=== PATIENT | female | born 1980 | race Caucasian/White ===

== ENCOUNTER 2018-05-21 15:57 | Emergency (ER) | payer MEDICAID, SELFPAY ==
[2018-05-21 16:08] VITALS: BP 137/86; PULSE 108; RESP 16; TEMP 37.2; O2SAT 99
--- NOTE | 2018-05-21 16:10 | DI.RAD_ITS ---
SYMPTOM/DIAGNOSIS: 1 WK PAIN AFTER TRAUMA OVER LATERAL FOOT AND 2/3 TOE RIGHT FOOT: No fracture, dislocation is seen. There is a bone island in the calcaneus as well as a small healed spur. IMPRESSION: No acute abnormality.
--- NOTE | 2018-05-21 16:24 | W.ED.GENAD ---
Discharge Plan Disposition Patient Disposition: HOME Condition: Good Discharge Details Chief Complaint: Orthopedic Clinical Impression: Acute foot pain Reason For Visit: right foot pain Primary Care Provider: Pipo Alarcon ED Provider: Sampson Norris Home Meds and New Rx's Prescriptions: No Action amoxicillin 500 MG capsule 500 mg PO BID Qty: 14 RF: 0 fexofenadine 60 MG tablet 60 mg PO Q12H PRN PRNQty: 14 RF: 0 fluticasone [Flonase Allergy Relief] 9.9 ML spray,suspension 9.9 ml NS DAILY Qty: 1 RF: 0 Discharge Instructions Instructions: Foot Sprain (ED) Additional Instructions: Please continue to take Tylenol and Motrin. Please use ice as often as possible. Please use the walking boot as directed. If you notice any worsening of your symptoms, or any new symptoms such as vomiting, diarrhea, fever, chills, shortness of breath, chest pain, numbness, weakness, or fainting , please return immediately to the emergency department for reevaluation. Please follow up with your primary care provider as soon as possible for reassessment and reevaluation. As always, it was a pleasure participating in your medical care today. Referrals: Pipo Alarcon [Primary Care Provider] - Medical Decision Making This is a 38-year-old female who presents for pain in her right foot. It occurred 1 week ago after stepping on it funny but it was slightly numb and tingly after sitting for quite some time. She has since had pain in the midfoot region, her second and third toe, the lateral aspect of her foot. No significant deformity or abnormalities noted on exam. Minimal swelling. We will get an x-ray to rule out any acute fracture. 5:20 PM The x-ray has returned negative for any acute fracture process. No evidence of a Lisfranc fracture. Patient will be given a walking boot, and discharged home with close follow-up with her PCP. We discussed the importance of orthopedic follow-up if her symptoms do not improve. Recommend continued ice, Tylenol, and Motrin. I have extensively reviewed the treatment plan and discharge instructions with the patient and their family. I have addressed all patient concerns at this time. The patient and family was made aware of what symptoms to monitor for that would warrant a return to the emergency department. Discussed the plan with the patient and family, they demonstrate verbal understanding and agreement with our assessment and plan at this time. COMPARISON: No relevant prior studies available. FINDINGS: The bony structures are in anatomic alignment. No fracture is present. No radiopaque foreign body is identified. The joint spaces are well maintained. IMPRESSION: No evidence of acute bony injury. Dictated and Authenticated by: Telly Stephenson MD. HPI General Date/Time Provider Initiated Documentation: 05/21/18 16:03. HPI Narrative: This is a pleasant 38-year-old female with no significant past medical history who presents today for evaluation of right foot pain. The patient states that 1 week ago she was sitting funny in a chair, had some tingling in her foot when she got up she stepped funny on her foot, causing the front of her foot to flex under the rest of her foot. She heard a crack and a pop at that time. The pain is focused in the lateral aspect of her foot and over the second and third toe. As well as the midfoot region she has been taking ibuprofen, and using ice however her pain has persisted since then. Pain is made worse with movement. It is improved by nothing. She does admit to some slight tingling over the second and third toe. She denies any other complaints at this time. No other modifying factors. No radiation to her ankle, or knee. She denies any recent surgeries, any IV or illicit drug use, or any pertinent family history. Related Data Home Medications Medication Instructions Recorded Confirmed amoxicillin 500 mg PO BID #14 capsule 11/12/17 fexofenadine 60 mg PO Q12H PRN PRN #14 tablet 11/12/17 fluticasone [Flonase Allergy 9.9 ml NS DAILY #1 spray.susp 11/12/17 Relief] Previous Rx's Medication Instructions Recorded amoxicillin 500 mg PO BID #14 capsule 11/12/17 fexofenadine 60 mg PO Q12H PRN PRN #14 tablet 11/12/17 fluticasone [Flonase Allergy 9.9 ml NS DAILY #1 spray.susp 11/12/17 Relief] Allergies Allergy/AdvReac Type Severity Reaction Status Date / Time No Known Allergies Allergy Unverified 11/12/17 13:26 General Stated Complaint: Orthopedic ZACK: 4 Review of Systems Review of Systems All systems reviewed & are unremarkable except as noted in HPI and below PFSH Social History Smoking/Tobacco Use Status: Current every day Exam Narrative Exam Narrative: 1.Const: Well-nourished, Well-developed, appearing stated age 2.Eyes: PERRL, no conjunctival injection, and symmetrical lids. 3.ENT: Atraumatic external nose and ears. Moist MM. Neck: Symmetric, trachea midline, No thyromegaly. 4.CVS: +S1/S2, No murmurs or gallops. Peripheral pulses 2+ and equal in all extremities. Brisk capillary refill in all extremities. 5.RESP: Unlabored respiratory effort. Clear to auscultation bilaterally. No wheezes rales or rhonchi 6.GI: Soft, Nontender/Nondistended, No hepatosplenomegaly. No guarding or rebound. 7.MSK: Normocephalic, Extremities w/o deformity. No cyanosis or clubbing, normal movement of all extremities. Focused exam on the patient's right lower foot demonstrates bruising over the second and third digit at the base of the toes. Notable tenderness over the base of the second and third toe, as well as a lateral aspect of her right foot. Good plantar and dorsiflexion. Good sensation throughout the foot including two-point discrimination down to the toes. Brisk capillary refill. Some mild tenderness over the midfoot region as well on palpation. 8.Skin: Warm, Dry. No rashes or lesions. 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 Sensation grossly intact, no focal neurologic deficits. 10.Psych: (AAO) x3. Appropriate mood and affect Course Vital Signs Temperature 37.2 C 05/21/18 16:08 Pulse 108 H 05/21/18 16:08 Respiratory Rate 16 05/21/18 16:08 Blood Pressure 137/86 05/21/18 16:08 Pulse Oximetry 99 05/21/18 16:08 Temperature 37.2 C 05/21/18 16:08 Temperature Source Temporal Artery Scan 05/21/18 16:08 Pulse 108 H 05/21/18 16:08 Respiratory Rate 16 05/21/18 16:08 Respiratory Effort 05/21/18 16:14 Blood Pressure 137/86 05/21/18 16:08 Pulse Oximetry 99 05/21/18 16:08 Oxygen Delivery Method Room Air 05/21/18 16:08 Oxygen Flow Rate 0 05/21/18 16:08
--- NOTE | 2018-05-21 17:14 | DI.VRAD_ITS ---
EXAM: XR Right Foot Complete, 3 or more Views EXAM DATE/TIME: 05/21/2018 4:11 PM CLINICAL HISTORY: 38 years old, female; Pain; Foot; Right; Patient HX: 1 wk pain after trauma; Mostly over lateral foot and 2nd + 3rd toe. TECHNIQUE: XR Right foot 3 or more views. COMPARISON: No relevant prior studies available. FINDINGS: The bony structures are in anatomic alignment. No fracture is present. No radiopaque foreign body is identified. The joint spaces are well maintained. IMPRESSION: No evidence of acute bony injury. Dictated and Authenticated by: Telly Stephenson MD. Ordering:LOREN Braden MD
== END 2018-05-21 17:40 | disposition home or self-care (01) ==
PROVIDERS: Emergency Provider Student in an Organized Health Care Education/Training Program; PCP Nurse Practitioner
DX: M79.671 Pain in right foot (principal)
CPT/HCPCS: 29515; 99283; 73630; 99282; L4361

== ENCOUNTER 2019-02-27 16:08 | Emergency (ER) | payer MEDICAID, SELFPAY ==
[2019-02-27 16:14] VITALS: BP 113/66; PULSE 120; RESP 32; TEMP 36.7; O2SAT 99
--- NOTE | 2019-02-27 16:25 | DI.CT_ITS ---
EXAM: CT LUMBAR SPINE RECONS CLINICAL HISTORY: lower back pain. TECHNIQUE: The CT of the lumbar spine was carried out without contrast enhancement as reconstruction s from abdomen and pelvic CT. COMPARISON: No exams were available for comparison FINDINGS: There is no evidence of a fracture or subluxation. There is no evidence of spinal stenosis. Note i s made of a multiloculated left cystic ovarian lesion. 6 week follow-up is suggested. The soft tissue s are unremarkable. IMPRESSION: No acute abnormality involving the spine is identified. Once again note is made of a left ovarian cys tic lesion and a follow-up study is suggested in 6 weeks.
--- NOTE | 2019-02-27 16:26 | DI.CT_ITS ---
EXAM: CT ABDOMEN PELVIS W CLINICAL HISTORY: lower back pain radiating to abdomen. TECHNIQUE: The examination was carried out with an intravenous administration of 100 cc of Omnipaque 350. COMPARISON: No exams were available for comparison FINDINGS: The liver is normal. The patient is status post cholecystectomy. The pancreas, spleen, and adrenals a re normal. The kidneys are normal. The stomach is unremarkable. There is no evidence of obstruction. There is no evidence of an acute appendix. There is no evidence of free air or fluid in the intrape ritoneal space. There is no evident abnormality involving the abdominal aorta. There is no evidence of lymphadenopathy. The bladder is intact. Multi loculated left ovarian cystic lesion is demonstrat ed. A 6 week follow-up is suggested. Uterus is normal. No acute bony abnormality is seen. IMPRESSION: Multiloculated left ovarian cystic lesion is identified. A follow-up examination in 6 weeks is sugges ethan.
--- NOTE | 2019-02-27 16:30 | ED.GENADUL_ITS ---
Discharge Plan Disposition Patient Disposition: HOME Condition: Stable Discharge Details Chief Complaint: Nk/Back Pain Clinical Impression: Low back pain Primary Care Provider: Pipo Alarcon ED Provider: Devon Johnson Home Meds and New Rx's Prescriptions: New oxycodone 5 mg tablet 5 mg PO Q6H PRN (Reason: pain) Qty: 12 RF: 0 Continued sertraline 50 mg Tablet 50 mg PO DAILY RF: 0 fluticasone propionate [Flonase Allergy Relief] 9.9 ML spray,suspension 9.9 ml NS DAILY Qty: 1 RF: 0 Discharge Instructions Instructions: Low Back Strain (ED) Additional Instructions: follow up with [facility] in 1-2 days and you should have an ultrasound done of your ovaries. Call their office in the morning follow up with your primary care provider within 1-2 weeks take 1000mg tylenol and 600mg ibuprofen every 6 hours for pain as needed if you develop difficulty urinating, fevers, or worsening pain return to the emergency department Referrals: Mitul Sharif MD [ [facility] STAFF PHYSICIAN] - Medical Decision Making 39 yo female who denies chronic medical problems comes in with chief complaint of lower back pian. She sttes she started to have lower back pain last night and today she bent down and had significant increase in the low back pain and fell to the ground. She arrives yelling in pain. She localizes the pain to the lower back throughout. She denies fevers, ivdu, has no urinary retention on history and no saddle anesthesia, has no findings on hx or physical to suggest cauda equina or sea. Given her degree of pain will image to eval for kidney stone and compression fracture and monitor labs unremarkable, and ct shows multliocualted left ovarian cyst. Will see if an aviation technical systems specialist can come in to perform u/s. Still has pain in the left lower back, will give additional pain meds no call back from u/s tech. Spoke with obgyn and Dr. Sharif will come to see the patient Dr. Sharif performed pelvic exam and feels she doesn't require ultrasound now as no tenderness over the ovary and unlikely torsion but should have u/s within 1-2 days. I did offer admission for pain control but she declined and wants to try going home. Will send her home with short course pain medication and will also have her f/u with pcp in addition to Dr. Sharif, return precautions given Differential Diagnosis Differential Diagnosis: muscle spasm, kidney stone, compression fracture Imaging Data Radiologic Study: Attestation: I personally reviewed and interpreted this imaging study as follows: Imaging: CT Scan Radiologist's impression: multiloculated left ovarian cyst on ct abd/pelvis and also lumbar ct otherwise no acute findings Lab Data Lab results reviewed: Yes I reviewed the patient's lab results. HPI General Mode of arrival: wheelchair . Date/Time Provider Initiated Documentation: 02/27/19 16:11 . Limitations to Documentation: no limitations . Information obtained by: patient . History of Present Illness 39 year old F presents to the emergency department with the chief complaint of lower back pain, described as moderate and severe, Quality is described as aching, and it has been constant. No relieving factors improve symptom(s), No exacerbating factors reported . Patient did receive the following treatments prior to arrival, none Related Data Home Medications Medication Instructions Recorded Confirmed fluticasone propionate [Flonase 9.9 ml NS DAILY #1 spray.susp 11/12/17 02/27/19 Allergy Relief] oxycodone 5 mg PO Q6H PRN #12 tab 02/27/19 sertraline 50 mg PO DAILY 02/27/19 02/27/19 Previous Rx's Medication Instructions Recorded fluticasone propionate [Flonase 9.9 ml NS DAILY #1 spray.susp 11/12/17 Allergy Relief] oxycodone 5 mg PO Q6H PRN #12 tab 02/27/19 Allergies Allergy/AdvReac Type Severity Reaction Status Date / Time No Known Allergies Allergy Unverified 02/27/19 16:20 General Stated Complaint: Nk/Back Pain ZACK: 3 Review of Systems Review of Systems ROS Unobtainable: All systems reviewed & are unremarkable except as noted in HPI and below Constitutional Constitutional: Denies chills, Denies fever(s) and Denies weakness Cardiovascular Cardiovascular: Denies chest pain and Denies dyspnea Respiratory Respiratory: Denies cough and Denies dyspnea Gastrointestinal Gastrointestinal: Denies abdominal pain, Denies nausea and Denies vomiting Musculoskeletal Musculoskeletal: Denies joint swelling Neurologic Neurologic: Denies weakness PFSH Social History Smoking/Tobacco Use Status: Current every day Drug use: Never Do you feel safe in your relationship?: Yes Additional Social history: unable to assess privately Exam Const General: other (in pain) Orientation: alert HENMT Head: normal to inspection Ears: external ears normal General nose exam: external nose normal Mouth: moist mucous membranes Eyes General: appearance normal, both eyes and all related structures Neck Neck: normal visual inspection Resp Effort & Inspection: normal respiratory effort and able to speak in complete sentences Cardio Rate: regular rate Back/Spine/Pelvis Back: no CVA tenderness Skin General skin exam: no rashes or lesions noted Neuro General: alert and oriented x3 Extrem General: normal to inspection Psych Mental Status: mental status grossly normal Course Vital Signs Vital signs: Vital Signs Temperature 36.7 C 02/27/19 16:14 Pulse 120 H 02/27/19 16:14 Respiratory Rate 32 H 02/27/19 16:14 Blood Pressure 113/66 02/27/19 16:14 Pulse Oximetry 99 02/27/19 16:14 Temperature 36.7 C 02/27/19 16:14 Temperature Source Skin 02/27/19 16:14 Pulse 120 H 02/27/19 16:14 Respiratory Rate 32 H 02/27/19 16:14 Blood Pressure 113/66 02/27/19 16:14 Blood Pressure Position Sitting 02/27/19 16:14 Pulse Oximetry 99 02/27/19 16:14 Oxygen Delivery Method Room Air 02/27/19 16:14 Oxygen Flow Rate 0 02/27/19 16:14 Pain Level 10 02/27/19 16:18
[2019-02-27] MEDS: diazePAM 10 MG/2 ML SYR IVP (16:37)
[2019-02-27] MEDS: Ketorolac 15 MG/ML VIAL IVP (16:39)
[2019-02-27] MEDS: Normal Saline 1,000 ML 1000 ML IV (16:39)
[2019-02-27 17:10] LABS: Abs Immature Grans 0.03 k/cumm (0.0-0.09); Absolute Basophil Count 0.02 k/cumm (0.0-0.2); Absolute Eosinophil Count 0.05 k/cumm (0.0-0.7); Absolute Lymphocyte Count 2.07 k/cumm (1.2-3.4); Absolute Monocyte Count 0.57 k/cumm (0.11-0.7); Absolute Neutrophil Count 9.48 k/cumm (1.2-6.7); Basophils % 0.2; Eosinophils % 0.4; HCT 39.3 % (36.0-46.0); Immature Grans % 0.2; Lymphocytes % 16.9; Mean Corp. HGB Concentration 33.1 g/dL (32.0-36.0); Mean Corpuscular Hemoglobin 29.3 pg (27.0-33.0); Mean Corpuscular Volume 88.5 fL (80-95); Mean Platelet Volume 9.5 fL (8.0-11.0); Monocytes % 4.7; Neutrophils % 77.6; Platelet Count 290 x1000/uL (130-400); RBC 4.44 m/cumm (4.00-5.20); RBC Distribution Width 13.5 % (11.7-14.6); White Blood Cell Count 12.22 k/cumm (4.4-10.8)
[2019-02-27 17:15] LABS: ALT 18 U/L (14-59); AST 12 U/L (15-37); Albumin 3.4 g/dL (3.4-5.0); Alkaline Phosphatase 80 U/L (46-116); Anion Gap 10.4 mmol/L (3-11); BUN 12 mg/dL (7-18); Bilirubin, Total 0.3 mg/dL (0.2-1.0); CO2 23.6 mmol/L (21.0-32.0); Calcium 8.6 mg/dL (8.5-10.1); Chloride 106 mmol/L (98-107); Glucose 129 mg/dL (70-100); INR 1.1 (0.9-1.1); Lipase 229 U/L (73-393); Magnesium 1.7 mg/dL (1.8-2.4); PTT Activated 26.3 sec (21.0-31.4); Potassium 3.5 mmol/L (3.5-5.1); Prothrombin Time 10.7 sec (9.3-11.0); Sodium 140 mmol/L (136-145); Total Protein 6.7 g/dL (6.4-8.2)
[2019-02-27] MEDS: Normal Saline Flush 10 ML SYR IVP (17:32)
[2019-02-27] MEDS: Omnipaque 350 MG/ML 100 ML BTL IJ (17:32)
--- NOTE | 2019-02-27 17:59 | DI.VRAD_ITS ---
Addendum created by Jeremías Lynch MD on 02/27/2019 8:23:36 PM EDT Left ovarian lesion measures 6.8 x 4.7 cm. Initial report created on 02/27/2019 5:59:12 PM EDT PROCEDURE INFORMATION: Exam: CT Abdomen And Pelvis With Contrast Exam date and time: 02/27/2019 5:21 PM Clinical history: 39 years old, female; Other: Lower back pain radiating to abdomen TECHNIQUE: Imaging protocol: Computed tomography of the abdomen and pelvis with intravenous contrast. Radiation optimization: All CT scans at this facility use at least one of these dose optimization techniques: automated exposure control; mA and/or kV adjustment per patient size (includes targeted exams where dose is matched to clinical indication); or iterative reconstruction. Contrast material: OMNIPAQUE 350; Contrast volume: 100 ml; Contrast route: IV; COMPARISON: US PELVIS TRANSVAG 08/30/2013 3:57 PM FINDINGS: Liver: Normal. No mass. Gallbladder and bile ducts: cholecystectomy. Pancreas: Normal. No ductal dilation. Spleen: Normal. No splenomegaly. Adrenals: Normal. No mass. Kidneys and ureters: Normal. No hydronephrosis. Stomach and bowel: Unremarkable. No obstruction. No mucosal thickening. Appendix: No evidence of appendicitis. Intraperitoneal space: Unremarkable. No free air. No significant fluid collection. Vasculature: Unremarkable. No abdominal aortic aneurysm. Lymph nodes: Unremarkable. No enlarged lymph nodes. Bladder: Unremarkable as visualized. Reproductive: Multiloculated left ovarian cystic lesion. Consider 6 week followup. Uterus is normal. Bones/joints: Unremarkable. No acute fracture. IMPRESSION: Multiloculated left ovarian cystic lesion. Consider 6 week followup. Dictated and Authenticated by: Jeremías Lynch MD. Ordering:PANCHO Osorio MD
--- NOTE | 2019-02-27 18:02 | DI.VRAD_ITS ---
Addendum created by Jeremías Lynch MD on 02/27/2019 6:43:46 PM EDT Left ovarian lesion measures 6.8 x 4.7 cm. Initial report created on 02/27/2019 6:01:45 PM EDT PROCEDURE INFORMATION: Exam: CT Lumbar Spine Without Contrast Exam date and time: 02/27/2019 5:21 PM Clinical history: 39 years old, female; Other: Lower back pain; Additional info: Lower back pain, please do recons from CT abd/pelvis TECHNIQUE: Imaging protocol: Computed tomography images of the lumbar spine without contrast. Radiation optimization: All CT scans at this facility use at least one of these dose optimization techniques: automated exposure control; mA and/or kV adjustment per patient size (includes targeted exams where dose is matched to clinical indication); or iterative reconstruction. COMPARISON: CR LUMBAR SPINE COMPLETE 08/21/2014 3:10 PM FINDINGS: Vertebrae: No acute fracture. Normal alignment. Discs/Spinal canal/Neural foramina: No spinal stenosis. No neural foraminal narrowing. Reproductive: Multiloculated left ovarian cystic lesion. Consider 6 week followup. Soft tissues: Unremarkable. IMPRESSION: Multiloculated left ovarian cystic lesion. Consider 6 week followup. Dictated and Authenticated by: Jeremías Lynch MD. Ordering:PANCHO Osorio MD
[2019-02-27 18:14] VITALS: BP 95/63; PULSE 85; RESP 14; O2SAT 98
[2019-02-27] MEDS: fentaNYL 100 MCG/2 ML VIAL 75 MCG IVP (18:43)
--- NOTE | 2019-02-27 19:10 | NUR.NOTE ---
Nursing Note: Pt reports nausea, MD notified at this time. Zofran pulled by this nurse per MD.
[2019-02-27] MEDS: Ondansetron 4 MG/2 ML VIAL (19:20)
--- NOTE | 2019-02-27 19:46 | W.GYNCONSULT ---
Date of service: 02/27/19 Time of Service: 19:46 Assessment and Plan Assessment and plan (1) Ovarian cyst: Status: Acute Assessment and plan: CT of the abdomen and pelvis did demonstrate a 6 to 7 cm multiloculated left ovarian cyst. While this is certainly a risk factor for torsion she clinically does not have any signs that would suggest this on her exam. Her pelvic exam and abdominal exam are essentially normal. Her symptoms seem to be more likely related to her disc disease and possible disc herniation. I would still recommend close follow-up of the ovarian cyst with an ultrasound in the next couple of days to definitively rule out torsion. I would like to have her follow-up with me in the clinic within the next week. (2) Back pain: Status: Acute History of Present Illness History of Present Illness Chief Complaint: Evaluate for possible ovarian torsion Narrative: 39-year-old presents to the emergency department today with complaint of acute onset of left back pain radiating down her left leg. The patient does have a long-standing history of degenerative disc disease and has had problems with sciatica and neuropathy of the left foot for some time. During her evaluation she received a CT of the abdomen and pelvis which showed a 6 to 7 cm multiloculated ovarian cyst on the left. An ultrasound could not be obtained at this point and there was suspicion for possible ovarian torsion as an etiology. Interval history she reports that the pain began while she was in the shower and turned her body feeling a pop. She reports that her left knee buckled and she nearly fell to the floor. She denies any abdominal pain. Her menses which are typically regular were late this month. Review of Systems Review of Systems ROS Unobtainable: All systems reviewed & are unremarkable except as noted in HPI and below PFSH Social History Smoking/Tobacco Use Status: Current every day Drug use: Never Do you feel safe in your relationship?: Yes Additional Social history: unable to assess privately Exam GI Other: Abdomen is soft and essentially nontender. There is no palpable masses. There is no rebound tenderness. No guarding. No CVA tenderness. Other: Normal external genitalia. Normal vaginal mucosa. No cervical motion tenderness on exam. No adnexal tenderness. Results Last Vital Signs Temp 98.1 F 02/27/19 16:14 Pulse 85 02/27/19 18:14 Resp 14 02/27/19 18:14 BP 95/63 L 02/27/19 18:14 Pulse Ox 98 02/27/19 18:14 Labs Result diagrams: 02/27/19 16:55 02/27/19 16:55 Labs: Laboratory Results - last 24 hr 02/27/19 02/27/19 02/27/19 16:55 16:55 16:55 WBC 12.22 H RBC 4.44 Hgb 13.0 Hct 39.3 MCV 88.5 MCH 29.3 MCHC 33.1 RDW 13.5 Plt Count 290 MPV 9.5 Immature Gran % 0.2 Neutrophils % 77.6 Lymphocytes % 16.9 Monocytes % 4.7 Eosinophils % 0.4 Basophils % 0.2 Absolute Neutrophils 9.48 H Absolute Lymphocytes 2.07 Absolute Monocytes 0.57 Absolute Eosinophils 0.05 Absolute Basophils 0.02 PT 10.7 INR 1.1 APTT 26.3 Sodium 140 Potassium 3.5 Chloride 106 Carbon Dioxide 23.6 Anion Gap 10.4 BUN 12 Creatinine 0.80 Estimated GFR/1.73 m2 >= 60.00 Glucose 129 H Calcium 8.6 Magnesium 1.7 L Total Bilirubin 0.3 AST 12 L ALT 18 Alkaline Phosphatase 80 Total Protein 6.7 Albumin 3.4 Lipase 229
== END 2019-02-27 19:45 | disposition home or self-care (01) ==
PROVIDERS: Emergency Provider Emergency Medicine; PCP Nurse Practitioner
DX: M54.5 Low back pain (principal)
CPT/HCPCS: 36415; 80053; 83690; 96361; 96374; 96375; 99253; 99285; 74177; 83735; 85025; 85610; 85730; 99284; J1885; J2405; J3010; J3360; J3490

== ENCOUNTER 2019-03-09 00:46 | Outpatient (CLI) | payer MEDICAID, SELFPAY ==
--- NOTE | 2019-03-09 10:00 | DI.US_ITS ---
EXAM: US PELVIS CLINICAL HISTORY: LT-SIDED ADNEXAL TENDERNESS, ? OVARIAN CYST ON CT TECHNIQUE: Ultrasound performed using standard protocol. A transabdominal exam was performed. The patient refused transvaginal imaging. COMPARISON: CT ABDOMEN PELVIS W from 02/27/2019 which showed 2 adjacent cysts measuring 4.7 and 4. 3 cm versus a septated cyst. FINDINGS: The uterus measures 10.0 x 3.6 x 5 cm. The endometrial stripe measures 5 millimeters in thickness. The right ovary is unremarkable. The left ovary shows 2 adjacent cysts versus a cyst with septation measuring maximally 2.5 cm. This is significantly decreased in size when compared with the previous CT. The findings are consistent with benign functional cysts. The ovaries show normal blood flow. T here is no evidence of torsion. There is no free fluid or hydronephrosis. IMPRESSION: Considerable interval decrease in size left ovarian cysts.
== END 2019-03-09 01:06 ==
PROVIDERS: PCP Nurse Practitioner; Visit Provider Nurse Practitioner
DX: R10.2 Pelvic and perineal pain (principal); N83.292 Other ovarian cyst, left side
CPT/HCPCS: 76856

== ENCOUNTER 2019-04-16 00:07 | Outpatient (CLI) | payer MEDICAID, SELFPAY ==
--- NOTE | 2019-04-16 12:56 | DI.RAD_ITS ---
EXAM: XR ANKLE RT COMPLETE INDICATION: INJURY OF RT ANKLE, SEQUELAE S99.911S. COMPARISON: XR foot RT complete from 05/21/2018 TECHNIQUE: 2D digital imaging was performed. FINDINGS: There is a small fracture fragment adjacent to the tip of the lateral malleolus, which could represen t a subacute avulsion fracture. Soft tissue swelling is noted around both malleoli. The ankle morti se is not widened. No talar dome defect is seen. IMPRESSION: Fracture at the tip of the lateral malleolus.
== END 2019-04-16 00:27 ==
PROVIDERS: PCP Nurse Practitioner; Visit Provider Nurse Practitioner
DX: S99.811A Other specified injuries of right ankle, initial encounter (principal); S82.64XA Nondisplaced fracture of lateral malleolus of right fibula, initial encounter for closed fracture; M79.89 Other specified soft tissue disorders
CPT/HCPCS: 73610

== ENCOUNTER 2019-06-24 14:56 | Emergency (ER) | payer MEDICAID, SELFPAY ==
[2019-06-24 15:01] VITALS: BP 133/72; PULSE 109; RESP 20; TEMP 36.8; O2SAT 97
--- NOTE | 2019-06-24 15:14 | ED.GENADUL_ITS ---
Discharge Plan Disposition Patient Disposition: HOME Condition: Serious Discharge Details Chief Complaint: GenMedical Clinical Impression: Sinusitis Primary Care Provider: Pipo Alarcon ED Provider: Lukas Salinas Home Meds and New Rx's Prescriptions: New amoxicillin-pot clavulanate [Augmentin] 875-125 mg tablet 1 tab PO BID Qty: 14 RF: 0 No Action sertraline 50 mg Tablet 50 mg PO DAILY RF: 0 oxycodone 5 mg tablet 5 mg PO Q6H PRN (Reason: pain) Qty: 12 RF: 0 fluticasone propionate [Flonase Allergy Relief] 9.9 ML spray,suspension 9.9 ml NS DAILY Qty: 1 RF: 0 Discharge Instructions Instructions: How to Stop Smoking (ED), Sinusitis (ED) Additional Instructions: Please take full course of antibiotic as prescribed for sinusitis. Drink plenty of fluids to stay hydrated. Please stop smoking. If you need help with this, please talk to your primary care doctor. Please contact your primary care physician to arrange follow-up. Return to the ER for any worsening or new concerning symptoms. Medical Decision Making 39-year-old female here with sinusitis. Patient had pain and congestion for 2 weeks. Consider bacterial etiology. Plan to treat with Augmentin. HPI General Mode of arrival: ambulatory . Date/Time Provider Initiated Documentation: 06/24/19 15:02 . Limitations to Documentation: no limitations . Information obtained by: patient . HPI Narrative: 39-year-old female presents with sinus pain. Patient notes she is had sinus pain and congestion for the past 2 weeks. Symptoms persistent. She notes intermittent fever. She has had some cough as well. Sinus pain is moderate. She also notes bilateral ear pain. Related Data Home Medications Medication Instructions Recorded Confirmed fluticasone propionate [Flonase 9.9 ml NS DAILY #1 spray.susp 11/12/17 02/27/19 Allergy Relief] oxycodone 5 mg PO Q6H PRN #12 tab 02/27/19 sertraline 50 mg PO DAILY 02/27/19 02/27/19 amoxicillin-pot clavulanate 1 tab PO BID #14 tab 06/24/19 [Augmentin] Previous Rx's Medication Instructions Recorded fluticasone propionate [Flonase 9.9 ml NS DAILY #1 spray.susp 11/12/17 Allergy Relief] oxycodone 5 mg PO Q6H PRN #12 tab 02/27/19 amoxicillin-pot clavulanate 1 tab PO BID #14 tab 06/24/19 [Augmentin] Allergies Allergy/AdvReac Type Severity Reaction Status Date / Time No Known Allergies Allergy Unverified 02/27/19 16:20 General Stated Complaint: GenMedical ZACK: 4 Review of Systems All systems reviewed & are unremarkable except as noted in HPI and below Constitutional Constitutional: Reports fever(s) ENT Ears, Nose, Mouth, and Throat: Reports as per HPI Respiratory Respiratory: Reports cough PFSH Social History Smoking/Tobacco Use Status: Current every day Tobacco Type: cigarettes Drug use: Never Do you feel safe in your relationship?: Yes Additional Social history: unable to assess privately Exam Const General: cooperative and no acute distress HENMT Head: normocephalic Ears: external ears normal, TM's normal bilaterally and no periauricular adenopathy General nose exam: external nose normal and nares normal Face and sinus: face symmetric, no fluctuance and tenderness (Maxillary and frontal sinuses) Mouth: moist mucous membranes Throat: posterior oropharynx normal Eyes Conjunctivae: normal conjunctivae Sclera: normal sclerae EOM: EOM intact bilaterally Neck Neck: trachea midline and supple Resp Auscultation: clear to auscultation bilaterally, no rales, no rhonchi and no wheezes Cardio Jugular venous pressure: no JVD Rate: regular rate and not tachycardic Rhythm: regular rhythm Course Vital Signs Vital signs: Vital Signs Temperature 36.8 C 06/24/19 15:01 Pulse 109 H 06/24/19 15:01 Respiratory Rate 06/24/19 15:01 Blood Pressure 133/72 06/24/19 15:01 Pulse Oximetry 97 06/24/19 15:01 Temperature 36.8 C 06/24/19 15:01 Temperature Source Skin 06/24/19 15:01 Pulse 109 H 06/24/19 15:01 Respiratory Rate 06/24/19 15:01 Respiratory Effort 06/24/19 15:05 Blood Pressure 133/72 06/24/19 15:01 Pulse Oximetry 97 06/24/19 15:01 Oxygen Delivery Method Room Air 06/24/19 15:01 Oxygen Flow Rate 0 06/24/19 15:01 Pain Level 7 06/24/19 15:01 Comment 06/24/19 15:01
== END 2019-06-24 15:20 | disposition home or self-care (01) ==
PROVIDERS: Emergency Provider Student in an Organized Health Care Education/Training Program; PCP Nurse Practitioner
DX: J01.80 Other acute sinusitis (principal); F17.210 Nicotine dependence, cigarettes, uncomplicated
CPT/HCPCS: 99284; 99283

== ENCOUNTER 2022-08-19 01:08 | Outpatient (CLI) | payer MEDICAID, SELFPAY ==
--- NOTE | 2022-08-19 09:04 | DI.MAMMO_ITS ---
Exam(s) MAMMO SCREENING EXAM: MAMMO SCREENING CLINICAL HISTORY: SCREENING, Z12.31 TECHNIQUE: Mammograms were interpreted according to the usual protocol including computer analysis w [employer] CAD system, tomosynthesis and C-view imaging. COMPARISON: No exams were available for comparison. Baseline examination. FINDINGS: The breasts are composed of scattered fibroglandular densities, Breast Density category B. No suspicious masses or suspicious microcalcifications are seen. No skin thickening or abnormal axillary lymph nodes are seen. IMPRESSION: BI-RADS Category 1, Negative mammogram Yearly screening mammography is recommended. Breast Density - Category B, scattered fibroglandular densities. A negative radiographic report should not delay biopsy if a dominant or clinically suspicious mass is present. Up to ten percent of cancers are not identified on mammography. A negative report may reinforce clinical impression. Adenosis and dense breasts may obscure an underlying neoplasm. False positive reports average 6 to 10%. Patient will receive a letter notifying them of these results.
== END 2022-08-19 01:28 ==
LOC: DI 01:08
PROVIDERS: PCP Nurse Practitioner; Visit Provider Nurse Practitioner
DX: Z12.31 Encounter for screening mammogram for malignant neoplasm of breast (principal)
CPT/HCPCS: 77063; 77067

== ENCOUNTER 2022-12-20 20:54 | Emergency (ER) | payer MEDICAID, SELFPAY ==
[2022-12-20 21:21] VITALS: BP 133/98; PULSE 106; RESP 22; TEMP 37.2; O2SAT 99
--- NOTE | 2022-12-20 22:14 | ED.GENADUL_ITS ---
Discharge Plan Disposition Patient Disposition: Home Discharge Details Clinical Impression: Infected dental caries Primary Care Provider: Hoda Brunner ED Provider: Ruben Neil Home Meds and New Rx's Prescriptions: New amoxicillin-pot clavulanate 875-125 mg tablet 1 tab PO Q12H 7 Days Qty: 14 0RF Continued aripiprazole [Abilify] 10 mg tablet 10 mg PO DAILY omeprazole 40 mg capsule,delayed release(DR/EC) 40 mg PO DAILY venlafaxine 150 mg tablet extended release 24hr 150 mg PO DAILY sertraline 50 mg Tablet 50 mg PO DAILY Discharge Instructions Instructions: Dental Abscess (ED) Additional Instructions: It is very important that you follow-up with a dental provider preferably in the next week for definitive care of your dental complaint. Please take the antibiotic as prescribed and for the full course to fully resolve your infection. It is very important that you do not save antibiotics. It is also recommended that you take a daily probiotic or increase amount of yogurt consumption while on the antibiotic and for at least 2 weeks after to help with positive bacteria in your gut. Return to the emergency department for any new or significant worsening of your symptoms. Medical Decision Making Patient presenting to the emergency department for chief complaint of dental pain and facial swelling. Patient reports some jaw pain that started yesterday but today she has had worsening facial swelling. Patient reports the tooth that she feels is sore she was told that she was supposed to have a root canal but never got this performed. Patient denies all other symptoms. Physical exam shows tenderness to tooth #6 with surrounding edema. No fluctuant abscess is noted but I am concerned for a dental abscess. . no signs of deep neck space infection ( Retropharyngeal abscess, Kentrell's angina, Parapharyngeal space infection, Peritonsillar Abscess (WIRELESS ARCHITECT)) or Epiglottitis. Pt non toxic and stable. Patient placed upon Augmentin and strongly encouraged to follow-up with dental provider for definitive care of her dental complaint. After discussion of diagnosis and plan of care patient has no further needs, questions, or concerns and states clear understanding to return to the emergency department for any worsening symptoms. This documentation was generated using [employer] system, please disregard any oddities of phrase or misspellings. HPI General Mode of arrival: ambulatory . Date/Time Provider Initiated Documentation: 12/20/22 21:25 . Limitations to Documentation: no limitations . Information obtained by: patient . History of Present Illness 42 year old F presents to the emergency department with the chief complaint of Dental pain, described as moderate, Quality is described as aching, and is localized to the mouth. Patient started experiencing this day(s) (1) and it has been constant. No relieving factors improve symptom(s), No exacerbating factors reported . Patient notes no other symptoms.. Patient did receive the following treatments prior to arrival, NSAID Related Data Home Medications Medication Instructions Recorded Confirmed sertraline 50 mg tablet 50 mg PO DAILY 02/27/19 12/20/22 aripiprazole 10 mg tablet (Abilify) 10 mg PO DAILY 11/18/22 12/20/22 omeprazole 40 mg capsule,delayed 40 mg PO DAILY 11/18/22 12/20/22 release venlafaxine 150 mg tablet,extended 150 mg PO DAILY 11/18/22 12/20/22 release 24 hr amoxicillin 875 mg-potassium 1 tab PO Q12H 7 days #14 tabs 12/20/22 clavulanate 125 mg tablet Previous Rx's Medication Instructions Recorded amoxicillin 875 mg-potassium 1 tab PO Q12H 7 days #14 tabs 12/20/22 clavulanate 125 mg tablet Allergies Allergy/AdvReac Type Severity Reaction Status Date / Time dust allergy Allergy Mild Uncoded 11/18/22 15:11 Hay allergy Allergy Mild Uncoded 11/18/22 15:11 pollen Allergy Mild Uncoded 11/18/22 15:11 wood shavings allergy Allergy Mild Uncoded 11/18/22 15:11 General Stated Complaint: FacialProb ZACK: 4 Review of Systems Constitutional Constitutional: Denies chills and Denies fever(s) ENT Ears, Nose, Mouth, and Throat: Reports as per HPI, Denies change in voice, Reports dental pain, Denies dysphagia, Denies throat swelling and Denies tongue swelling Cardiovascular Cardiovascular: Denies chest pain and Denies dyspnea Respiratory Respiratory: Denies dyspnea, Denies stridor and Denies wheezing Gastrointestinal Gastrointestinal: Denies abdominal pain, Denies dysphagia, Denies nausea and Denies vomiting Integumentary/Breasts Skin/Breast: Denies rash Allergic/Immunologic Allergic/Immunologic: Denies throat swelling, Denies tongue swelling and Denies wheezing PFSH All Active Problems (Updated 12/20/22 @ 22:19 by Ruben Neil NP) Infected dental caries (Acute) Anxiety and depression (Chronic) Sinusitis (Acute) Back pain (Acute) Ovarian cyst (Acute) Medical History GERD (gastroesophageal reflux disease) Situational mixed anxiety and depressive disorder Family History Father Alcohol use disorder Mother Breast cancer Thyroid cancer Depression Diabetes Maternal Grandmother Asthma Diabetes Maternal Grandfather Colon cancer Maternal Uncle Colon cancer Social History Smoking/Tobacco Use Status: Current-Occasional Second Hand Exposure: Yes Smoking risk assessment performed?: Yes Alcohol Intake: current Alcohol Intake frequency: holidays/special occasions o nly Details: Monthly or less - 5-6 at a time Drug use: Occasionally Substance use type: marijuana Counseling given: No Adopted: No Foster care: No Household members: children Housing: house Number of Children: 2 number of grandchildren: 0 Communication Needs: None Education Level: high school Do you need help understanding health information?: Never 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: [employer]/ 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 [employer] care Pets and animals: Yes Pets and animals: dog(s) Sexually active: No Do you think of yourself as: straight/heterosexual Current gender identity: female What is your relationship status?: How often do you talk on the phone with friends or family?: never How often do you get together with friends or relatives?: once per week Do you belong to any clubs or organized social groups?: no Panel score (0-1 are the most socially isolated patients): 0 What type of physical activity do you participate in: none Tracie/Hindu: Buddhist Special tracie needs: No Seatbelt use: sometimes Helmet use: Yes Helmet use: sometimes Drive intox or ride w/intox [employer] company driver: No Do you feel safe at home: Yes Do you feel safe in your relationship?: Yes Additional Social history: unable to assess privately Exam Const General: cooperative Orientation: alert, awake and oriented x3 Limitations: mental status not altered HENMT Head: normal to inspection, normocephalic and atraumatic Ears: hearing grossly normal bilaterally, normal mastoids bilaterally and no periauricular adenopathy General nose exam: external nose normal Mouth: oral mucosae normal, lip normal, tongue normal, oropharynx normal, no drooling, no muffled voice, normal tongue and no trismus Teeth and gingiva: abnormal tooth or associated gingiva upper right canine tender and with associated gingival edema; without associated gingival fluctuance and caries Throat: posterior oropharynx normal, tonsils normal and uvula midline Eyes General: appearance normal, both eyes and all related structures Pupils: PERRL Neck Neck: normal visual inspection, full ROM, no lymphadenopathy, no meningeal signs, trachea midline, supple, no anterior neck swelling and no midline deformity Resp Effort & Inspection: normal respiratory effort and able to speak in complete sentences Auscultation: clear to auscultation bilaterally Cardio Rate: regular rate Rhythm: regular rhythm Heart Sounds: S1 normal and S2 normal Course Vital Signs Vital signs: Vital Signs Temperature 37.2 C 12/20/22 21:21 Pulse 106 H 12/20/22 21:21 Respiratory Rate 22 12/20/22 21:21 Blood Pressure 133/98 H 12/20/22 21:21 Pulse Oximetry 99 12/20/22 21:21 Temperature 37.2 C 12/20/22 21:21 Temperature Source Temporal Artery Scan 12/20/22 21:21 Pulse 106 H 12/20/22 21:21 Respiratory Rate 22 12/20/22 21:21 Respiratory Effort Normal, Non-Labored 12/20/22 21:25 Blood Pressure 133/98 H 12/20/22 21:21 Blood Pressure Position Sitting 12/20/22 21:21 Pulse Oximetry 99 12/20/22 21:21 Oxygen Delivery Method Room Air 12/20/22 21:21 Oxygen Flow Rate 0 12/20/22 21:21 Pain Level 7 12/20/22 21:25 PAWSS Have you Been Recently Intoxicated or Drunk Within the Last 30 days?: No Have you Ever Experienced Previous Episodes of Alcohol Withdrawal?: No Have you ever Experienced Withdrawal Seizures?: No Have you ever Experienced Delirium Tremens(DT)s?: No Have you ever undergone Alcohol Rehabilitation Treatment (i.e, inpt ot outpatient treatment programs)?: No Have you ever Experienced Blackouts?: No Have you ever Combined Alcohol with other Downers within the last 90 days?: No Have you ever Combined Alcohol with any other Substance of Abuse during the last 90 days?: No Positive Blood Alcohol level on Presentation? [PCS.BAL]: No Evidence of Increased Autonomic Activity (i.e. HR>120, tremor, sweating, agitation, nausea)?: No Result: 0
[2022-12-20] MEDS: Amoxicillin 875/Clav. 125 TAB PO (22:17)
[2022-12-20 22:26] VITALS: BP 133/72; PULSE 78; RESP 18; TEMP 36.8; O2SAT 98
== END 2022-12-20 22:31 | disposition home or self-care (01) ==
PROVIDERS: Emergency Provider Nurse Practitioner Family; PCP Nurse Practitioner
DX: K04.7 Periapical abscess without sinus (principal)
CPT/HCPCS: 99283; 99284

== ENCOUNTER 2023-10-26 17:03 | Outpatient (REF) | payer MEDICAID, SELFPAY ==
--- NOTE | 2023-10-26 16:45 | PAPFT_PTH ---
PATIENT: Rosa Yanez LOC: NO U#:[id number] AGE/SX: 43/F ROOM: RE10/26/[address]: Hoda Brunner APRN : 1980 BED: DIS: 10/26/2023 SPEC #: [id number] RECD: 10/27/23 13:16 STATUS: MAICOL REQ #: [id number] GWENDOLYN: 10/26/23 16:[address]: Hoda Brunner DEPT: [facility] Cytology RECD BY: Qi Francisco Tissues: 1 - CX/ENDOCX FOR PAP SMEARS Procedures: PAP THIN PREP/UVM Screening HPV DNA PROBE Comments: [id number] (HPV 16 & 18/45)
== END 2023-10-26 17:04 | disposition home or self-care (01) ==
LOC: LBN 17:03
PROVIDERS: PCP Nurse Practitioner; Visit Provider Nurse Practitioner
DX: Z12.4 Encounter for screening for malignant neoplasm of cervix (principal)
CPT/HCPCS: 88142; 87624

== ENCOUNTER → 2023-11-03 00:29 | Outpatient (CLI) | payer MEDICAID, SELFPAY ==
--- NOTE | 2023-11-03 12:57 | DI.MAMMO_ITS ---
Exam(s) MAMMO SCREENING EXAM: MAMMO SCREENING CLINICAL HISTORY: screening,Z12.39 TECHNIQUE: Bilateral full field digital CC and MLO mammographic images were obtained with 3D tomosyn thesis and utilizing computer aided detection (CAD). COMPARISON: Available for comparison. FINDINGS: Masses/Architectural Distortion: There is an area in the upper central left breast on the MLO view wh ich is more prominent compared to the prior examination. It is 7.7 cm from the nipple. Microcalcifications: No suspicious pleomorphic-type are seen. Skin Thickening/Nipple Retraction: None. IMPRESSION: 1. Asymmetric density in the upper left breast on the MLO view. 2. This area should be further evaluated with a spot compression view. Ultrasound may be indicated a t that time. BI-RADS Category 0 - Assessment Incomplete: Need additional imaging evaluation Breast Density - Category B - Scattered areas of fibroglandular density Breast density category C or D implies that the patient has dense breast tissue. Dense breast tissue is very common and is not abnormal but dense breast tissue can make it harder to find cancer on a ma mmogram. Also, dense breast tissue may increase their breast cancer risk. This information about the result of the mammogram report was provided to the patient to raise their awareness. Use this report when you speak with the patient about their risks for breast cancer, which includes their family hist ory. At that time, you may recommend for more screening tests (Ultrasound or MRI) as they might be us eful based on their risk. A negative radiographic report should not delay biopsy if a dominant or clinically suspicious mass is present. Up to ten percent of cancers are not identified on mammography. A negative report may reinforce clinical impression. Adenosis and dense breasts may obscure an underlying neoplasm. False positive reports average 6 to 10%. Patient will receive a letter notifying them of these results.
== END ==
PROVIDERS: PCP Nurse Practitioner; Visit Provider Nurse Practitioner
DX: Z12.39 Encounter for other screening for malignant neoplasm of breast (principal)
CPT/HCPCS: 77063; 77067

== ENCOUNTER → 2023-11-15 01:37 | Outpatient (CLI) | payer MEDICAID, SELFPAY ==
--- NOTE | 2023-11-15 | DI.MAMMO_ITS ---
Exam(s) MG MAMMO SCREEN CALL BACK UNI US BREAST LT LIMITED EXAM: MG MAMMO SCREEN CALL BACK UNI CLINICAL HISTORY: F/U ABNL MAMMO, R92.8,ASYMETRIC DENSITY UPPER LT BREAST. TECHNIQUE: Craniocaudal and mediolateral oblique spot compression digital Mammography views of the l eft breast followed by Tomosynthesis and left breast ultrasound. COMPARISON: MG MG MAMMO SCREENING from 08/19/2022 MG MG MAMMO SCREENING from 11/03/2023 US US BREAST LT LIMITED from 11/15/2023 FINDINGS: Mammography/Tomosynthesis: Masses/Architectural Distortion: None seen. Decreased prominence of questioned area of nodular asym metry in the upper left breast on spot compression view. Microcalcifictions: No suspicious pleomorphic-type are seen. Skin Thickening/Nipple Retraction: None. Left breast US: Echotexture: Normal appearance of the glandular tissue. Island of dense tissue in the upper outer gustavo drant. Shadowing: No suspicious foci. Cyst: 4 millimeters cyst 2 o'clock position of the upper outer quadrant. 2 adjacent tiny cysts 2 o'cl ock position 10 cm from the nipple. Solid lesions: None seen. Ductal dilation: None. IMPRESSION: 1. No evidence of malignancy is noted. 2. Unless there is more urgent need, follow-up screening mammography is recommended, as per [place] [employer] guidelines. 3. The findings were discussed with the patient on the date of the examination. BI-RADS Category 2 - Benign Findings Breast Density - Category B - Scattered areas of fibroglandular density A mammogram that demonstrates density of C or D indicates the patient's breast tissue is dense. Dense breast tissue is very common and is not abnormal, but dense breast tissue can make it harder to find cancer on a mammogram. Also, dense breast tissue may increase their breast cancer risk. This informa tion about the result of the mammogram report was provided to the patient to raise their awareness. U se this report when you speak with the patient about their risks for breast cancer, which includes th eir family history. At that time, you may recommend for more screening tests (Ultrasound or MRI) as t hey might be useful based on their risk. A negative radiographic report should not delay biopsy if a dominant or clinically suspicious mass is present. Up to ten percent of cancers are not identified on mammography. A negative report may reinforce clinical impression. Adenosis and dense breasts may obscure an underlying neoplasm. False positive reports average 6 to 10%. Patient will receive a letter notifying them of these results.
== END ==
PROVIDERS: PCP Nurse Practitioner; Visit Provider Nurse Practitioner
DX: R92.8 Other abnormal and inconclusive findings on diagnostic imaging of breast (principal)
CPT/HCPCS: 76642; 77063; 77067